=== PATIENT | male | born 1955 | race Caucasian/White ===

== ENCOUNTER → 2019-01-27 | Outpatient (CLI) | payer BC, OTHER ==
[~2019-01-27] VITALS: Ht 162.6 cm; Wt 90.7 kg
[~2019-01-27] MED LIST: ASPIR 8181 MG PO; BENAZEPRIL HCL40 MG PO; BREO ELLIPTA 11 EACH INH; CENTRUM SILVER1 EAC4 PO; CLARITIN10 MG PO; CRESTOR20 MG PO; FISH OIL 1,0001 EAC8 PO; GLUCOSAMINE CH1 EAC2 PO; VENTOLIN HFA 1818 GM INH; WELLBUTRIN XL300 MG PO
== END | disposition home or self-care (01) ==
LOC: GI 09:35
DX: Z12.11 Encounter for screening for malignant neoplasm of colon (principal); Z86.010 Personal history of colon polyps; K57.30 Diverticulosis of large intestine without perforation or abscess without bleeding; K64.8 Other hemorrhoids; I10 Essential (primary) hypertension; E78.00 Pure hypercholesterolemia, unspecified; I25.2 Old myocardial infarction; J45.909 Unspecified asthma, uncomplicated; F32.9 Major depressive disorder, single episode, unspecified; F41.9 Anxiety disorder, unspecified; Z98.890 Other specified postprocedural states; Z95.5 Presence of coronary angioplasty implant and graft; Z79.899 Other long term (current) drug therapy; Z79.82 Long term (current) use of aspirin
CPT/HCPCS: 62110; 62900

== ENCOUNTER → 2019-11-17 | Outpatient (CLI) | payer BC | LOC: SJCVCIMAG 14:33 | DX: I65.23 Occlusion and stenosis of bilateral carotid arteries (principal); I10 Essential (primary) hypertension; I25.10 Atherosclerotic heart disease of native coronary artery without angina pectoris ==

== ENCOUNTER → 2020-09-27 | Outpatient (CLI) | payer BC, OTHER | LOC: SJCVCIMAG 09:16 | PROVIDERS: ATTEND Internal Medicine Cardiovascular Disease | DX: I25.10 Atherosclerotic heart disease of native coronary artery without angina pectoris (principal); R00.0 Tachycardia, unspecified; I10 Essential (primary) hypertension; Z98.61 Coronary angioplasty status ==

== ENCOUNTER → 2021-11-23 | Outpatient (CLI) | payer OTHER | LOC: SJCVCIMAG 06:56 | PROVIDERS: ATTEND Internal Medicine Cardiovascular Disease | DX: I25.10 Atherosclerotic heart disease of native coronary artery without angina pectoris (principal); I10 Essential (primary) hypertension; E78.5 Hyperlipidemia, unspecified; Z82.49 Family history of ischemic heart disease and other diseases of the circulatory system; Z87.891 Personal history of nicotine dependence; Z72.89 Other problems related to lifestyle; Z79.82 Long term (current) use of aspirin; Z79.899 Other long term (current) drug therapy ==